=== PATIENT | male | born 1945 | race Caucasian/White ===

== ENCOUNTER → 2023-11-06 10:01 | Outpatient (REF) | payer MEDICARE, SELFPAY ==
[2023-11-06 13:33] LABS: Blood Urea Nitrogen 33 mg/dl (9-20); Calcium 9.7 mg/dl (8.4-10.2); Carbon Dioxide 35 mmol/L (22-30); Chloride 96 mmol/L (98-107); Glucose 148 mg/dl (70-99); Potassium 3.9 mmol/L (3.5-5.1); Sodium 138 mmol/L (135-145); eGFR 38.77
[2023-11-06 14:00] LABS: TSH Reflex To Free T4 3.49 uIU/ml (0.47-4.68)
== END ==
LOC: HWLAB 10:01
PROVIDERS: ATTENDING PHYSICIAN Family Medicine
DX: N18.32 Chronic kidney disease, stage 3b (principal); E11.22 Type 2 diabetes mellitus with diabetic chronic kidney disease; R00.1 Bradycardia, unspecified
CPT/HCPCS: 36415; 80048; 84443

== ENCOUNTER → 2023-11-19 11:19 | Outpatient (REF) | payer MEDICARE, SELFPAY ==
[2023-11-19 15:25] LABS: % Basophils 0.8 % (0-2); % Eosinophils 8.1 % (0-6); % Immature Granulocytes 0.3 % (0-0.5); % Lymphocytes 17.2 % (20.5-51.1); % Monocytes 8.2 % (1.7-9.3); % Neutrophils 65.4 % (42.2-75.2); Absolute Basophils 0.1 10^3/uL (0-0.2); Absolute Eosinophils 0.7 10^3/uL (0-0.7); Absolute Lymphocytes 1.6 10^3/uL (1.2-3.4); Absolute Monocytes 0.7 10^3/uL (0.1-0.6); Absolute Neutrophils 5.9 10^3/uL (1.4-6.5); Hematocrit 41.2 % (39.0-52.0); Hemoglobin 13.6 g/dL (13.0-18.0); Mean Corpuscular Hgb 31.9 pg (27.0-31.0); Mean Corpuscular Volume 96.5 fL (80.0-94.0); Mean Platelet Volume 10.6 fL (7.4-10.4); Nucleated Red Blood Cells % 0 % (-); Platelet Count 219 10^3/uL (130-400); Red Blood Cell Count 4.27 10^6/uL (4.70-6.10); Red Cell Dist. Width 14.4 % (11.5-14.5)
[2023-11-19 15:41] LABS: ALT (SGPT) 20 U/L (0-50); AST (SGOT) 27 U/L (17-59); Albumin 3.7 g/dl (3.5-5.0); Alkaline Phosphatase 91 U/L (38-126); Blood Urea Nitrogen 33 mg/dl (9-20); Calcium 9.5 mg/dl (8.4-10.2); Carbon Dioxide 31 mmol/L (22-30); Chloride 99 mmol/L (98-107); Glucose 145 mg/dl (70-99); Potassium 4.4 mmol/L (3.5-5.1); Sodium 139 mmol/L (135-145); Total Bilirubin 0.5 mg/dl (0.2-1.3); Total Protein 6.2 g/dl (6.3-8.2); eGFR 34.16
== END ==
LOC: HWLAB 11:19
PROVIDERS: ATTENDING PHYSICIAN Internal Medicine Cardiovascular Disease
DX: R00.1 Bradycardia, unspecified (principal)
CPT/HCPCS: 36415; 80053; 85025

== ENCOUNTER → 2023-12-18 11:46 | Outpatient (REF) | payer MEDICARE, SELFPAY ==
[2023-12-18 16:13] LABS: Blood Urea Nitrogen 39 mg/dl (9-20); Calcium 9.5 mg/dl (8.4-10.2); Carbon Dioxide 30 mmol/L (22-30); Chloride 101 mmol/L (98-107); Glucose 161 mg/dl (70-99); Potassium 3.7 mmol/L (3.5-5.1); Sodium 137 mmol/L (135-145); eGFR 41.52
== END ==
LOC: HWLAB 11:46
PROVIDERS: ATTENDING PHYSICIAN Family Medicine
DX: N18.32 Chronic kidney disease, stage 3b (principal); R79.9 Abnormal finding of blood chemistry, unspecified
CPT/HCPCS: 36415; 80048

== ENCOUNTER → 2024-03-31 11:39 | Outpatient (REF) | payer MEDICARE, SELFPAY ==
[2024-03-31 15:55] LABS: ALT (SGPT) 23 U/L (0-50); AST (SGOT) 32 U/L (17-59); Albumin 4.5 g/dl (3.5-5.0); Alkaline Phosphatase 101 U/L (38-126); Blood Urea Nitrogen 38 mg/dl (9-20); Calcium 9.8 mg/dl (8.4-10.2); Carbon Dioxide 30 mmol/L (22-30); Chloride 101 mmol/L (98-107); Glucose 150 mg/dl (70-99); HDL Cholesterol 80 mg/dl; LDL Cholesterol, Calculated 73 mg/dl; Potassium 3.9 mmol/L (3.5-5.1); Sodium 140 mmol/L (135-145); Total Bilirubin 0.6 mg/dl (0.2-1.3); Total Cholesterol 188 mg/dl (50-199); Total Protein 7.1 g/dl (6.3-8.2); Triglyceride 178 mg/dl (10-149); Very Low Density Lipoprotein 35 mg/dl (0-30); eGFR 38.53
[2024-03-31 16:06] LABS: Urine Protein 11 mg/dl (0-12)
== END ==
LOC: HWLAB 11:39
PROVIDERS: ATTENDING PHYSICIAN Internal Medicine; FAMILY PHYSICIAN Family Medicine; REFERRING PHYSICIAN Internal Medicine Cardiovascular Disease
DX: N18.32 Chronic kidney disease, stage 3b (principal); I25.10 Atherosclerotic heart disease of native coronary artery without angina pectoris
CPT/HCPCS: 36415; 80053; 80061; 82570; 84100; 84156

== ENCOUNTER → 2024-05-19 10:52 | Outpatient (REF) | payer MEDICARE, SELFPAY ==
[2024-05-19 12:29] LABS: % Basophils 0.7 % (0-2); % Immature Granulocytes 0.3 % (0-0.5); % Lymphocytes 23.6 % (20.5-51.1); % Monocytes 8.9 % (1.7-9.3); % Neutrophils 58.5 % (42.2-75.2); Absolute Basophils 0.1 10^3/uL (0-0.2); Absolute Eosinophils 0.6 10^3/uL (0-0.7); Absolute Lymphocytes 1.8 10^3/uL (1.2-3.4); Absolute Monocytes 0.7 10^3/uL (0.1-0.6); Absolute Neutrophils 4.5 10^3/uL (1.4-6.5); Hematocrit 39.6 % (39.0-52.0); Mean Corp Hgb Conc. 32.8 g/dL (33.0-37.0); Mean Corpuscular Volume 91.5 fL (80.0-94.0); Mean Platelet Volume 10.5 fL (7.4-10.4); Nucleated Red Blood Cells % 0 % (-); Platelet Count 220 10^3/uL (130-400); Red Blood Cell Count 4.33 10^6/uL (4.70-6.10); Red Cell Dist. Width 14.2 % (11.5-14.5); White Blood Cell Count 7.6 10^3/uL (4.8-10.8)
[2024-05-19 13:01] LABS: ALT (SGPT) 28 U/L (0-50); AST (SGOT) 34 U/L (17-59); Albumin 4.1 g/dl (3.5-5.0); Alkaline Phosphatase 89 U/L (38-126); Blood Urea Nitrogen 39 mg/dl (9-20); Calcium 9.5 mg/dl (8.4-10.2); Carbon Dioxide 30 mmol/L (22-30); Chloride 98 mmol/L (98-107); Glucose 150 mg/dl (70-99); Potassium 4.4 mmol/L (3.5-5.1); Sodium 137 mmol/L (135-145); Total Bilirubin 0.2 mg/dl (0.2-1.3); Total Protein 6.4 g/dl (6.3-8.2); eGFR 32.02
[2024-05-19 15:29] LABS: Glycohemoglobin (HgbA1c) 7.6 % (4.0-5.6)
== END ==
LOC: HWLAB 10:52
PROVIDERS: ATTENDING PHYSICIAN Family Medicine
DX: N18.32 Chronic kidney disease, stage 3b (principal); E11.22 Type 2 diabetes mellitus with diabetic chronic kidney disease; D50.9 Iron deficiency anemia, unspecified
CPT/HCPCS: 36415; 80053; 83036; 85025

== ENCOUNTER → 2024-05-20 12:33 | Outpatient (REF) | payer MEDICARE, SELFPAY | LOC: MRI 12:33 | PROVIDERS: ATTENDING PHYSICIAN Specialist; FAMILY PHYSICIAN Family Medicine | DX: M25.561 Pain in right knee (principal); M25.562 Pain in left knee; T85.192D Other mechanical complication of implanted electronic neurostimulator of spinal cord electrode (lead), subsequent encounter | CPT/HCPCS: 71046; 73721 ==

== ENCOUNTER → 2024-07-11 14:36 | Outpatient (REF) | payer MEDICARE, SELFPAY | LOC: DHVS 14:36 | PROVIDERS: ATTENDING PHYSICIAN Surgery Vascular Surgery; FAMILY PHYSICIAN Family Medicine | DX: I73.9 Peripheral vascular disease, unspecified (principal) | CPT/HCPCS: 93922; 93925 ==

== ENCOUNTER → 2024-08-12 08:55 | Day surgery (SDC) | payer MEDICARE, SELFPAY ==
[2024-08-12 10:42] LABS: % Basophils 0.8 % (0-2); % Eosinophils 10.3 % (0-6); % Immature Granulocytes 0.3 % (0-0.5); % Monocytes 8.6 % (1.7-9.3); Absolute Basophils 0.1 10^3/uL (0-0.2); Absolute Eosinophils 0.8 10^3/uL (0-0.7); Absolute Lymphocytes 1.8 10^3/uL (1.2-3.4); Absolute Monocytes 0.7 10^3/uL (0.1-0.6); Absolute Neutrophils 4.5 10^3/uL (1.4-6.5); Hematocrit 41.1 % (39.0-52.0); Hemoglobin 13.1 g/dL (13.0-18.0); Mean Corp Hgb Conc. 31.9 g/dL (33.0-37.0); Mean Corpuscular Hgb 29.5 pg (27.0-31.0); Mean Corpuscular Volume 92.6 fL (80.0-94.0); Mean Platelet Volume 10.6 fL (7.4-10.4); Nucleated Red Blood Cells % 0 % (-); Platelet Count 194 10^3/uL (130-400); Red Blood Cell Count 4.44 10^6/uL (4.70-6.10); Red Cell Dist. Width 15.3 % (11.5-14.5); White Blood Cell Count 7.9 10^3/uL (4.8-10.8)
[2024-08-12 10:54] LABS: Blood Urea Nitrogen 31 mg/dl (9-20); Calcium 9.5 mg/dl (8.4-10.2); Carbon Dioxide 28 mmol/L (22-30); Chloride 105 mmol/L (98-107); Glucose 126 mg/dl (70-99); Potassium 4.5 mmol/L (3.5-5.1); Sodium 142 mmol/L (135-145); eGFR 44.38
== END ==
LOC: SDSPAT 08:55
PROVIDERS: ATTENDING PHYSICIAN Specialist; FAMILY PHYSICIAN Family Medicine
DX: Z01.812 Encounter for preprocedural laboratory examination (principal)
CPT/HCPCS: 85025; 36415; 80048

== ENCOUNTER 2024-09-02 06:33 | Day surgery (SDC) | payer MEDICARE, SELFPAY ==
[2024-08-12 10:15] VITALS: BMI 30.4
[2024-09-02] VITALS (8 sets, daily range): BP systolic 120–149; BP diastolic 64–79; BMI 30.4
[2024-09-02 10:41] LABS: Glucose - Point of Care 152 mg/dl (70-99)
[2024-09-02] MEDS: CELEBREX 200 MG PO (11:09)
[2024-09-02] MEDS: TYLENOL 1000 MG PO (11:09)
[2024-09-02 12:48] LABS: Glucose - Point of Care 156 mg/dl (70-99)
[2024-09-02 14:05] LABS: Glucose - Point of Care 137 mg/dl (70-99)
== END 2024-09-02 15:19 | disposition home or self-care (01) ==
LOC: SDS 06:33
PROVIDERS: ATTENDING PHYSICIAN Specialist; FAMILY PHYSICIAN Family Medicine
DX: S83.232A Complex tear of medial meniscus, current injury, left knee, initial encounter (principal); X58.XXXA Exposure to other specified factors, initial encounter; M22.42 Chondromalacia patellae, left knee
CPT/HCPCS: 29881; 82962

== ENCOUNTER → 2024-10-07 11:14 | Outpatient (REF) | payer MEDICARE, SELFPAY ==
[2024-10-07 16:08] LABS: % Basophils 1.1 % (0-2); % Eosinophils 12.8 % (0-6); % Immature Granulocytes 0.4 % (0-0.5); % Lymphocytes 22.5 % (20.5-51.1); % Monocytes 9.8 % (1.7-9.3); % Neutrophils 53.4 % (42.2-75.2); Absolute Basophils 0.1 10^3/uL (0-0.2); Absolute Eosinophils 1.1 10^3/uL (0-0.7); Absolute Lymphocytes 1.8 10^3/uL (1.2-3.4); Absolute Monocytes 0.8 10^3/uL (0.1-0.6); Absolute Neutrophils 4.4 10^3/uL (1.4-6.5); Hematocrit 43.4 % (39.0-52.0); Hemoglobin 13.7 g/dL (13.0-18.0); Mean Corp Hgb Conc. 31.6 g/dL (33.0-37.0); Mean Corpuscular Hgb 28.8 pg (27.0-31.0); Mean Corpuscular Volume 91.2 fL (80.0-94.0); Mean Platelet Volume 10.4 fL (7.4-10.4); Nucleated Red Blood Cells % 0 % (-); Platelet Count 246 10^3/uL (130-400); Red Blood Cell Count 4.76 10^6/uL (4.70-6.10); Red Cell Dist. Width 14.8 % (11.5-14.5); White Blood Cell Count 8.2 10^3/uL (4.8-10.8)
[2024-10-07 16:32] LABS: ALT (SGPT) 20 U/L (0-50); AST (SGOT) 25 U/L (17-59); Albumin 4.2 g/dl (3.5-5.0); Alkaline Phosphatase 103 U/L (38-126); Blood Urea Nitrogen 29 mg/dl (9-20); Calcium 9.8 mg/dl (8.4-10.2); Carbon Dioxide 31 mmol/L (22-30); Chloride 98 mmol/L (98-107); Glucose 139 mg/dl (70-99); HDL Cholesterol 64 mg/dl; LDL Cholesterol, Calculated 57 mg/dl; Phosphorus 4.4 mg/dl (2.5-4.5); Potassium 3.9 mmol/L (3.5-5.1); Sodium 138 mmol/L (135-145); Total Bilirubin 0.4 mg/dl (0.2-1.3); Total Cholesterol 157 mg/dl (50-199); Total Protein 6.8 g/dl (6.3-8.2); Triglyceride 184 mg/dl (10-149); Very Low Density Lipoprotein 36 mg/dl (0-30); eGFR 41.26
[2024-10-07 16:38] LABS: Urine Protein 10 mg/dl (0-12)
[2024-10-07 17:43] LABS: Intact PTH 84.8 pg/ml (13.6-85.8)
== END ==
LOC: HWLAB 11:14
PROVIDERS: ATTENDING PHYSICIAN Internal Medicine Cardiovascular Disease; FAMILY PHYSICIAN Family Medicine; REFERRING PHYSICIAN Internal Medicine
DX: E78.5 Hyperlipidemia, unspecified (principal); N18.32 Chronic kidney disease, stage 3b
CPT/HCPCS: 36415; 80053; 80061; 82570; 83970; 84100; 84156; 85025

== ENCOUNTER → 2024-10-17 09:42 | Day surgery (SDC) | payer MEDICARE, SELFPAY ==
[2024-10-17 11:00] LABS: Hematocrit 40.7 % (39.0-52.0); Hemoglobin 13.3 g/dL (13.0-18.0); Mean Corp Hgb Conc. 32.7 g/dL (33.0-37.0); Mean Corpuscular Hgb 29.2 pg (27.0-31.0); Mean Corpuscular Volume 89.5 fL (80.0-94.0); Platelet Count 226 10^3/uL (130-400); Red Blood Cell Count 4.55 10^6/uL (4.70-6.10); Red Cell Dist. Width 14.5 % (11.5-14.5); White Blood Cell Count 8.3 10^3/uL (4.8-10.8)
[2024-10-17 11:46] LABS: Blood Urea Nitrogen 31 mg/dl (9-20); Calcium 9.3 mg/dl (8.4-10.2); Carbon Dioxide 31 mmol/L (22-30); Chloride 98 mmol/L (98-107); Glucose 156 mg/dl (70-99); Potassium 3.4 mmol/L (3.5-5.1); Sodium 139 mmol/L (135-145); eGFR 44.38
== END ==
LOC: SDSPAT 09:42
PROVIDERS: ATTENDING PHYSICIAN Specialist; FAMILY PHYSICIAN Family Medicine
DX: Z01.810 Encounter for preprocedural cardiovascular examination (principal); Z01.812 Encounter for preprocedural laboratory examination; R94.31 Abnormal electrocardiogram [ECG] [EKG]
CPT/HCPCS: 93005; 36415; 80048; 85027

== ENCOUNTER 2024-10-31 06:23 | Day surgery (SDC) | payer MEDICARE, SELFPAY ==
[2024-10-17 13:09] VITALS: BMI 29.0
--- NOTE | 2024-10-17 16:05 | PTCARENOTE ---
Abn ECG done 10/17, reviewed by Dr Gomes, no additional intervention.
--- NOTE | 2024-10-27 14:21 | PTCARENOTE ---
K+ 3.4 collected on 10/17/24, reviewed by Uzair Bermudez, no further interventions needed.
--- NOTE | 2024-10-27 15:06 | PTCARENOTE ---
Patients 10/17 potassium 3.4- reviwed by Dr. Burks- no additional interventions required
[2024-10-31] VITALS (9 sets, daily range): BP systolic 141–162; BP diastolic 66–99; BMI 29.0
[2024-10-31] MEDS: CELEBREX 200 MG PO (10:13)
[2024-10-31] MEDS: TYLENOL 1000 MG PO (10:13)
[2024-10-31] MEDS: NORMOSOL-R/PLASMALYTE-A 1000 IV (10:13)
[2024-10-31 10:37] LABS: Glucose - Point of Care 139 mg/dl (70-99)
[2024-10-31 13:20] LABS: Glucose - Point of Care 135 mg/dl (70-99)
[2024-10-31 14:09] LABS: Glucose - Point of Care 127 mg/dl (70-99)
[2024-10-31] MEDS: ZOFRAN 4 MG IV (15:04)
== END 2024-10-31 15:47 | disposition home or self-care (01) ==
LOC: SDS 06:23
PROVIDERS: ATTENDING PHYSICIAN Specialist; FAMILY PHYSICIAN Family Medicine
DX: S83.231A Complex tear of medial meniscus, current injury, right knee, initial encounter (principal); S83.281A Other tear of lateral meniscus, current injury, right knee, initial encounter; X58.XXXA Exposure to other specified factors, initial encounter
CPT/HCPCS: 29879; 29880; 82962

== ENCOUNTER → 2024-12-25 10:44 | Outpatient (REF) | payer MEDICARE, SELFPAY | LOC: REG 10:44 | PROVIDERS: ATTENDING PHYSICIAN Family Medicine | DX: R19.7 Diarrhea, unspecified (principal) | CPT/HCPCS: 87324; 87449 ==